=== PATIENT | female | born 1995 | race Caucasian/White ===

== ENCOUNTER 2019-02-20 13:25 | Emergency (ER) | payer MEDICAID ==
--- NOTE | 2019-02-20 13:52 | ED Physician Documentation ---
PD HPI OPHTHO - Stated complaint Stated Complaint: EYE REDNESS - Chief complaint Chief Complaint: Heent - History obtained from History obtained from: Patient - History of Present Illness Timing - onset: Other (2 days of bilateral eye irritation with drainage especially in the mornings that keeps them clotted shut. No visual deficit. She does not wear contacts.) Review of Systems Constitutional: denies: Fever, Chills Nose: denies: Rhinorrhea / runny nose, Congestion : denies: Dysuria, Now EGA PD PAST MEDICAL HISTORY - Past Medical History Past Medical History: No - Present Medications Home Medications: Ambulatory Orders Medication Instructions Recorded Confirmed Erythromycin Base [Erythromycin 1 appful OP 5XD 7 Days #1 oint...g. 02/20/19 Ophthalmic Ointment] - Allergies Allergies/Adverse Reactions: Allergies Allergy/AdvReac Type Severity Reaction Status Date / Time No Known Drug Allergies Allergy Verified 02/20/19 13:37 - Social History Does the pt have substance abuse?: No PD ED PE NORMAL - Vitals Vital signs reviewed: Yes - General General: Alert and oriented X 3, No acute distress - HEENT HEENT: Pharynx benign, Other (Bilateral conjunctivitis, no purulence at this time) - Neck Neck: Supple, no meningeal sign, No bony TTP Results - Vitals Vitals: Vital Signs - 24 hr 02/20/19 13:34 Temperature 36.8 C Heart Rate 105 H Respiratory 16 Rate Blood Pressure 122/73 O2 Saturation 98 Oxygen O2 Source Room air Departure - Departure Disposition: 01 Home, Self Care Clinical Impression: Conjunctivitis Qualifiers: Conjunctivitis type: acute Acute conjunctivitis type: unspecified Laterality: bilateral Qualified Code(s): H10.33 - Unspecified acute conjunctivitis, bilateral Condition: Good Record reviewed to determine appropriate education?: Yes Instructions: ED Conjunctivitis Nonspecific Prescriptions: Erythromycin Base [Erythromycin Ophthalmic Ointment] 1 appful OP 5XD 7 Days #1 oint...g. Comments: Return if worsening, follow-up with your doctor in 3 days if not better.
[2019-02-20 14:02] VITALS: BP 122/73
== END 2019-02-20 13:55 | disposition home or self-care (01) ==
LOC: ED 13:25
DX: H10.33 Unspecified acute conjunctivitis, bilateral (principal)
CPT/HCPCS: 99283

== ENCOUNTER 2021-03-17 11:01 | Emergency (ER) | payer MEDICAID ==
[2021-03-17 11:31] VITALS: BP 130/87
--- OUTSIDE RECORDS SUMMARY | 2021-03-17 12:07 | EXTERNAL MEDICAL SUMMARY RPT | Continuity of Care Document ---
:1995 Demographics Phone Unavailable Preferred Language Unknown Marital Status Unknown Pent[employer] Affiliation Unknown Race Unknown Ethnic Group Unknown Author Organization [facility] Address [address] [place] [address] Phone Allergies Encounters Medications Problems Results
== END 2021-03-17 12:05 | disposition left against medical advice (07) ==
LOC: ED 11:01
DX: Z53.21 Procedure and treatment not carried out due to patient leaving prior to being seen by health care provider (principal)

== ENCOUNTER 2021-04-06 04:36 | Emergency (ER) | payer MEDICAID ==
[2021-04-06 04:42] VITALS: BP 128/80
--- NOTE | 2021-04-06 04:43 | ED Physician Documentation ---
PD HPI HEENT - Stated complaint Stated Complaint: MOUTH PX - Chief complaint Chief Complaint: Heent - History obtained from History obtained from: Patient - History of Present Illness Timing - onset: Last night Timing - details: Gradual onset, Still present Pain level now: 6 Location: Mouth Improves: Nothing Associated symptoms: No: Fever Recently seen: Not recently seen - Additional information Additional information: c/o dental/gumline pain, left lower, since last night. she had similar symptoms 3 weeks ago and registered in this ED, but left without being seen. She said she had resolution of the symptoms spontaneously within a few days, and thus did not pursue follow-up. The symptoms recurred last night without apparent inciting event. Separately, she also asks that I look at a rash she has on her arms. She says this rash is mildly pruritic, and has been present for approximately 1 to 2 weeks. She says eczema runs in my family and her rash has similar appearance. she had not been diagnosed with eczema nor seen a doctor for this before Review of Systems Constitutional: denies: Fever Throat: reports: Dental pain / toothache Skin: reports: Rash PD PAST MEDICAL HISTORY - Past Medical History Past Medical History: No - Present Medications Home Medications: Ambulatory Orders Medication Instructions Recorded Confirmed Erythromycin Base [Erythromycin 1 appful OP 5XD 7 Days #1 oint...g. 02/20/19 Ophthalmic Ointment] Amox/Clav 875/125 [Augmentin 1 tablet PO Q12H 10 Days #20 tablet 04/06/21 875/125 Tab] Hydrocortisone Valerate 1 film TP BID #15 gm 04/06/21 - Allergies Allergies/Adverse Reactions: Allergies Allergy/AdvReac Type Severity Reaction Status Date / Time sertraline [From Zoloft] AdvReac Anxiety Verified 04/06/21 04:40 - Social History Does the pt have substance abuse?: No PD ED PE NORMAL - Vitals Vital signs reviewed: Yes - General General: Alert and oriented X 3, No acute distress, Well developed/nourished - Neck Neck: Supple, no meningeal sign PD ED PE EXPANDED - HEENT HEENT Visual: 1 - swelling, tenderness - Derm Derm: Other (Dry, scaly patch right antecubital fossa with scant papules and trace hyperpigmentation. Similar smaller lesions on both hands dorsal surfaces, mostly over MCP joints) Results - Vitals Vitals: Vital Signs - 24 hr 04/06/21 04/06/21 04:40 05:10 Temperature 36.5 C 36.5 C Heart Rate 87 87 Respiratory 16 16 Rate Blood Pressure 128/80 128/80 O2 Saturation 100 100 Oxygen O2 Source Room air PD MEDICAL DECISION MAKING - ED course Complexity details: considered differential, d/w patient ED course: Patient has small, focal area of swelling left buccal gingiva with tenderness but no fluctuance. Small/early abscess suspected; will trial on PO antibiotics but instructed to return if worse for revaluation, and to f/u with dentistry even if improving (she says she will contact [facility] in the AM). Her rash is suggestive of eczema, and she is prescribed medium-low potency topical steroid and instructed to follow up outpatient with general practitioner Departure - Departure Disposition: 01 Home, Self Care Clinical Impression: Dental infection, Eczema Condition: Good Instructions: ED Dermatitis Atopic Eczema, ED Abscess Tooth Follow-Up: Misty Tolliver MD [Provider Admit Priv/Credential] - Prescriptions: Amox/Clav 875/125 [Augmentin 875/125 Tab] 1 tablet PO Q12H 10 Days #20 tablet Hydrocortisone Valerate 1 film TP BID #15 gm Discharge Date/Time: 04/06/21 05:12
[2021-04-06] MEDS ORDERED: AMOX/CLAV 875 MG/125 MG TABLET PO STA (05:02)
== END 2021-04-06 05:12 | disposition home or self-care (01) ==
LOC: ED 04:36
DX: K04.7 Periapical abscess without sinus (principal); L30.9 Dermatitis, unspecified
CPT/HCPCS: 99282; 99283; A9270

== ENCOUNTER 2021-07-04 05:20 | Emergency (ER) | payer MEDICAID ==
--- NOTE | 2021-07-04 05:45 | ED Physician Documentation ---
PD HPI HEENT - Stated complaint Stated Complaint: RT SIDE FACE SWELLING - Chief complaint Chief Complaint: Heent - History obtained from History obtained from: Patient - History of Present Illness Timing - onset: How many days ago (several) Timing - duration: Days Timing - details: Abrupt onset, Still present Location: Tooth (right lower molar with filling that came out and is having now pain and gum swelling, leading to facial swelling in the area.) Worsens: Everything Associated symptoms: Facial swelling. No: Fever, Swollen nodes Similar symptoms before: Has not had sx before (dental infections) Recently seen: Not recently seen (tried calling dental clinic but no response as yet.) Review of Systems Constitutional: denies: Fever, Chills Nose: denies: Rhinorrhea / runny nose, Congestion Throat: denies: Sore throat Respiratory: denies: Cough GI: denies: Nausea, Vomiting Skin: denies: Rash PD PAST MEDICAL HISTORY - Past Medical History Cardiovascular: None Respiratory: None Neuro: None Endocrine/Autoimmune: None - Past Surgical History Past Surgical History: No - Present Medications Home Medications: Ambulatory Orders Medication Instructions Recorded Confirmed Erythromycin Base [Erythromycin 1 appful OP 5XD 7 Days #1 oint...g. 02/20/19 Ophthalmic Ointment] Amox/Clav 875/125 [Augmentin 1 tablet PO Q12H 10 Days #20 tablet 04/06/21 875/125 Tab] Hydrocortisone Valerate 1 film TP BID #15 gm 04/06/21 Clindamycin [Cleocin] 300 mg PO TID 7 Days #20 cap 07/04/21 Ibuprofen [Motrin] 600 mg PO TID PRN #20 tab 07/04/21 - Allergies Allergies/Adverse Reactions: Allergies Allergy/AdvReac Type Severity Reaction Status Date / Time sertraline [From Zoloft] AdvReac Anxiety Verified 04/06/21 04:40 vancomycin AdvReac Unknown Verified 07/04/21 05:32 - Social History Does the pt smoke?: No Smoking Status: Never smoker Does the pt have substance abuse?: No - Immunizations Immunizations are current?: No - POLST Patient has POLST: No PD ED PE NORMAL - Vitals Vital signs reviewed: Yes - General General: Alert and oriented X 3, No acute distress, Well developed/nourished - HEENT HEENT: Moist mucous membranes, Other (right mandibular swelling with tenderness but no fluctuance. ). No: Dentition benign (left lower dental filling missing w ith gum swelling and redness but no fluctuance. ) - Neck Neck: Supple, no meningeal sign, No adenopathy - Cardiac Cardiac: RRR, No murmur - Respiratory Respiratory: Clear bilaterally - Abdomen Abdomen: Soft, Non tender - Derm Derm: Normal color, Warm and dry - Neuro Neuro: Alert and oriented X 3, No motor deficit, Normal speech Results - Vitals Vitals: Oxygen O2 Source Room air PD MEDICAL DECISION MAKING - ED course Complexity details: considered differential (dental infection with facial swelling and gum swelling without fluctuance.), d/w patient Departure - Departure Disposition: Home, Self Care Clinical Impression: Dental infection Condition: Stable Record reviewed to determine appropriate education?: Yes Instructions: ED Abscess Tooth Prescriptions: Clindamycin [Cleocin] 300 mg PO TID 7 Days #20 cap Ibuprofen [Motrin] 600 mg PO TID PRN #20 tab PRN Reason: Pain Comments: Ibuprofen three times daily for inflammation and pain. Clindamycin three times daily for a week for infection. Follow up with Dental at soonest appointment for definitive care of the tooth. Add Tylenol as needed for pains. I transmitted your prescriptions to [facility] in [place]. Discharge Date/Time: 07/04/21 06:43
[2021-07-04] MEDS ORDERED: CLINDAMYCIN 150 MG CAPSULE PO STA (06:11)
[2021-07-04] MEDS ORDERED: IBUPROFEN 600 MG TABLET PO STA (06:11)
[2021-07-04 06:44] VITALS: BP 144/83
== END 2021-07-04 06:43 | disposition home or self-care (01) ==
LOC: ED 05:20
DX: K04.7 Periapical abscess without sinus (principal)
CPT/HCPCS: 99282; 99283; A9270

== ENCOUNTER 2023-08-03 22:37 | Emergency (ER) | payer MEDICAID ==
[2023-08-03] MEDS ORDERED: IBUPROFEN 600 MG TABLET PO STA (22:50)
[2023-08-03] MEDS ORDERED: ACETAMINOPHEN 325 MG TABLET PO STA (22:50)
[2023-08-03] MEDS ORDERED: IPRATROPIUM/ALBUTEROL 3 ML NEB INH STA (23:08)
--- NOTE | 2023-08-03 23:12 | ED Physician Documentation ---
History of Present Illness - Stated complaint Stated Complaint: BODY ACHES/FEVER/COUGH - Chief complaint Chief Complaint: General - History obtained from History obtained from: Patient - Additonal information Additional information: 27-year-old woman, previously healthy, daily smoker, presents with fever and cough/sore throat/nasal congestion X 3 days. Patient has chest pain with cough but not at baseline. Denies hemoptysis, leg swelling. Endorses some wheezing and subjective shortness of breath. Denies nausea PD PAST MEDICAL HISTORY - Past Medical History Cardiovascular: None Respiratory: None Neuro: None Endocrine/Autoimmune: None - Past Surgical History Past Surgical History: No - Present Medications Home Medications: Ambulatory Orders Medication Instructions Recorded Confirmed Erythromycin Base [Erythromycin 1 appful OP 5XD 7 Days #1 oint...g. 02/20/19 Ophthalmic Ointment] Amox/Clav 875/125 [Augmentin 1 tablet PO Q12H 10 Days #20 tablet 04/06/21 875/125 Tab] Hydrocortisone Valerate 1 film TP BID #15 gm 04/06/21 Clindamycin [Cleocin] 300 mg PO TID 7 Days #20 cap 07/04/21 Ibuprofen [Motrin] 600 mg PO TID PRN #20 tab 07/04/21 Dextromethorphan HBr 15 mg PO Q4H PRN #15 cap 08/03/23 - Allergies Allergies/Adverse Reactions: Allergies Allergy/AdvReac Type Severity Reaction Status Date / Time sertraline [From Zoloft] AdvReac Anxiety Verified 08/03/23 22:46 vancomycin AdvReac Unknown Verified 08/03/23 22:46 - Social History Does the pt smoke?: No Smoking Status: Never smoker Does the pt drink ETOH?: No Does the pt have substance abuse?: No - Immunizations Immunizations are current?: No - POLST Patient has POLST: No PD ED PE NORMAL - Vitals Vital signs reviewed: Yes - General General: Alert and oriented X 3, No acute distress, Well developed/nourished - HEENT HEENT: Atraumatic, PERRL, EOMI, Ears normal, Moist mucous membranes, Pharynx benign - Neck Neck: Supple, no meningeal sign - Cardiac Cardiac: RRR - Respiratory Respiratory: No respiratory distress, Other (Bilateral end expiratory wheezing) - Abdomen Abdomen: Non tender, Non distended - Derm Derm: Normal color, Warm and dry Results - Vitals Vitals: Vital Signs - 24 hr 08/03/23 22:46 Temperature 37.6 C Heart Rate 120 H Respiratory 16 Rate Blood Pressure 112/65 O2 Saturation 96 Oxygen O2 Source Room air PD Medical Decision Making - ED course ED course: 27-year-old woman presents with viral URI, she is not COVID or flu vaccinated therefore RVP was sent with high suspicion for acute viral syndrome. DuoNeb ordered for wheezing and chest tightness. Motrin and Tylenol provided for myalgia/subjective fever/chills. low suspicion for pneumonia at this time given symptoms seem more viral with reactive airways and responded well to breathing treatment with lungs CTAB. plan to dc home to f/u with pcp. symptomatic care discussed. Departure - Departure Clinical Impression: Viral URI with cough Condition: Stable Instructions: ED Viral Syndrome Prescriptions: Dextromethorphan HBr 15 mg PO Q4H PRN #15 cap PRN Reason: Cough Comments: You were seen in the emergency department for Viral upper respiratory infection. Electronic prescription for cough suppressant was sent to [facility] in [place]. Please follow-up with your primary care provider and return to the emergency department if you have any new or worsening symptoms or other concerns.
[2023-08-03 23:46] LABS: B. PARAPERTUSSIS- RESP PCR PAN NOT DETECTED; B. PERTUSSIS- RESP PCR PANEL NOT DETECTED; C. PNEUMONIAE- RESP PCR PANEL NOT DETECTED; CORONAVIRUS 229E-RESP PCR NOT DETECTED; CORONAVIRUS HKU1-RESP PCR NOT DETECTED; CORONAVIRUS NL63-RESP PCR NOT DETECTED; CORONAVIRUS OC43-RESP PCR NOT DETECTED; HUMAN METAPNEUMOVIRUS NOT DETECTED; INFLUENZA A- RESP PCR PANEL NOT DETECTED; INFLUENZA B - RESP PCR PANEL NOT DETECTED; M. PNEUMONIAE- RESP PCR PANEL NOT DETECTED; PARAINFLUENZA VIRUS 1 NOT DETECTED; PARAINFLUENZA VIRUS 2 NOT DETECTED; PARAINFLUENZA VIRUS 3 NOT DETECTED; PARAINFLUENZA VIRUS 4 NOT DETECTED; RHINOVIRUS/ENTEROVIRUS DETECTED; RSV- RESP PCR PANEL NOT DETECTED; SARS-CoV-2 -RESP PCR PANEL NOT DETECTED
[2023-08-04 00:21] VITALS: BP 121/74; O2SAT 100
== END 2023-08-04 00:13 | disposition home or self-care (01) ==
LOC: ED 22:37
DX: J06.9 Acute upper respiratory infection, unspecified (principal); Z20.822 Contact with and (suspected) exposure to COVID-19; Z28.310 Unvaccinated for COVID-19
CPT/HCPCS: 87633; 94640; 94664; 99283; A9270